=== PATIENT | male | born 1960 | race Caucasian/White ===

== ENCOUNTER 2020-07-19 13:38 | Emergency (ER) | payer BC ==
[~2020-07-19 13:38] MED LIST: TYLENOL W/CODEIN1 E2 PO
[2020-07-19] MEDS ORDERED: GABAPENTIN300 MG PO (15:47)
== END 2020-07-19 16:03 | disposition home or self-care (01) ==
LOC: ER1 13:38
DX: M79.671 Pain in right foot (principal); M25.571 Pain in right ankle and joints of right foot; G89.29 Other chronic pain; Z98.890 Other specified postprocedural states; Z79.899 Other long term (current) drug therapy; Z88.0 Allergy status to penicillin; Z88.8 Allergy status to other drugs, medicaments and biological substances
CPT/HCPCS: 73610; 73630; 99283